=== PATIENT | female | born 1995 | race Caucasian/White ===

== ENCOUNTER 2016-09-26 13:26 | Emergency (ER) | payer SELFPAY ==
--- NOTE | ~2016-09-26 | ER ---
PATIENT'S NAME: ZAHEER MIX [facility] AGE: 20 Y [address] ROOM: [place] [id number] LOCATION: [facility] ADMIT DATE: 09/26/2016 ER/Outpatient Report DISCHARGE DATE: 09/26/2016 FAMILY PHYSICIAN: PHYSICIAN, NO ATTENDING PHYSICIAN: Vera Pierce Time of Arrival: 1526 hours. Time of Evaluation: 1545 hours. CHIEF COMPLAINT: Pain with urination, midepigastric abdominal pain, and low back pain. HISTORY OF PRESENT ILLNESS: This is a 20-year-old female, who presents to the ER, who states that she has had a 3-day history of burning with urination and urinary frequency. She states today both sides of her lower back started hurting her, so she was wondering if she had a UTI. She also states that while she is here, she would like to get her other abdominal complaint addressed as well. She states she has been having some midepigastric to right upper quadrant abdominal pain for the past 2 months. She states it worsens after drinking plain water or with fatty foods. She states usually her pain lasts a day or a day and a half and then it will go away on its own and nothing really helps her pain. She states she has not followed up with her primary care physician in regard of this abdominal pain. She states her midepigastric pain does not radiate into her back. No fever or chills. Denies any other problems at this time. ALLERGIES: NO KNOWN ALLERGIES. MEDICATIONS: None. PAST MEDICAL HISTORY: Negative. PAST SURGERIES: None. SOCIAL HISTORY: She does work. She does smoke cigarettes. Denies any drug or alcohol use. REVIEW OF SYSTEMS: A 10-point review of systems was completed and was negative with the exception of those discussed in the HPI. PATIENT'S NAME: ZAHEER MIX [facility] AGE: 20 Y [address] ROOM: [place] [id number] LOCATION: [facility] ADMIT DATE: 09/26/2016 ER/Outpatient Report DISCHARGE DATE: 09/26/2016 FAMILY PHYSICIAN: PHYSICIAN, SANDOVAL ATTENDING PHYSICIAN: Vera Pierce PHYSICAL EXAMINATION: VITAL SIGNS: Weight 82 kg taken, pulse 126/69, pulse 85, respirations 16, temperature 98.4 degrees tympanically, and saturations 96% on room air. Genevieve Coma Score is 15. GENERAL: Alert, calm, well-developed female, and in no acute distress. HEENT: Head: Normocephalic. Eyes: Pupils are equal and reactive to light. Does display moist mucous membranes. LUNGS: Clear to auscultation bilaterally. No wheezes or crackles. Normal respiratory effort. HEART: Regular rate and rhythm. No lifts, thrills, or murmurs. ABDOMEN: Soft. She has mild tenderness in her right upper quadrant with palpation as well as her suprapubic area with palpation. No guarding. No rebound tenderness. She has good bowel sounds throughout. No masses were palpated. EXTREMITIES: No clubbing, cyanosis, or edema. Full range of motion of all limbs. LABORATORY DATA AND X-RAYS: CBC: White count is 13.8, hemoglobin is 13.3, platelets 273, and ANC is 8.1. CMS was unremarkable. Amylase is 36. Lipase is 67. Urinalysis; leukocytes 500, nitrites negative. UA micro; white blood cells 20 to 50, red blood cells 5 to 10, epithelial 5 to 10, bacteria many. Urine HCG was negative. Ultrasound of the right upper quadrant was unremarkable and reported by the photographic reproduction technician. IMPRESSION: 1. Urinary tract infection. 2. Right upper quadrant abdominal pain. ASSESSMENT AND PLAN: The patient did rest comfortably here the entire stay. We will culture her urine. We will send her home with Bactrim to use as directed. She needs to continue to push fluids and monitor her symptoms. Follow up with her primary care physician for followup care in a week. The patient understands and agrees with care. CORA GILLIS PA-C FOR [facility]/antonio /[id number] d: t: 09/29/16 1312, OUTPATIENT REPORT
[~2016-09-26 13:26] MED LIST: PRENATAL 1+1)(P1 TAB PO
[2016-09-26 14:07] LABS: BASOPHIL # 0.1 K/uL (0.0-0.2); BASOPHIL % 0.6 %; EOSINOPHIL # 0.8 K/uL (0.0-0.5); EOSINOPHIL % 6.1 %; HEMATOCRIT 40.1 % (33.0-46.0); HEMOGLOBIN 13.3 g/dL (11.0-15.0); IMMATURE GRANULOCYTE % 0.3 %; LYMPHOCYTE # 3.9 K/uL (0.8-4.0); LYMPHOCYTE % 28.1 %; MCH 29.7 pg (27.0-34.0); MCHC 33.2 gm/dL (32.0-36.5); MCV 89.5 fl (83.0-98.0); MONOCYTE # 0.9 K/uL (0.0-1.0); MONOCYTE % 6.4 %; MPV 10.5 fl (9.4-12.4); NEUTROPHIL # (ANC) 8.1 K/uL (1.8-7.8); NEUTROPHIL % 58.5 %; NRBC % 0 /100WBC (0-0.00); PLATELET COUNT 273 K/uL (150-450); RBC 4.48 M/uL (3.50-5.00); RDW-CV 12.2 % (11.9-14.6); WBC 13.8 K/uL (4.0-11.0)
[2016-09-26 14:08] LABS: BILIRUBIN URINE NEGATIVE (NEGATIVE); BLOOD URINE 25 /UL (NEGATIVE); COLOR URINE YELLOW (YELLOW); GLUCOSE URINE NEGATIVE (NEGATIVE); KETONE URINE NEGATIVE (NEGATIVE); LEUKOCYTES URINE 500 /UL (NEGATIVE); NITRITE URINE NEGATIVE (NEGATIVE); PROTEIN URINE NEGATIVE (NEGATIVE); TURBIDITY URINE 2+ (CLEAR); UROBILINOGEN URINE NORMAL (NORMAL)
[2016-09-26 14:22] LABS: WBC URINE 20-50 #/HPF (NEGATIVE)
[2016-09-26 14:23] LABS: ALBUMIN 4.1 gm/dL (3.5-5.0); ALK PHOS 67 IU/L (33-138); ALT 18 IU/L (12-78); AST 12 IU/L (10-40); BLOOD UREA NITROGEN 12 mg/dL (6-24); CALCIUM 9.2 mg/dL (8.5-10.5); CHLORIDE 105 mMol/L (96-110); CO2 26 mMol/L (22-32); CREATININE 0.8 mg/dL (0.5-1.1); ESTIMATED GFR (MDRD EQUATION) > 60; SODIUM 141 mMol/L (135-145); TOTAL BILIRUBIN 0.5 mg/dL (0.0-1.5); TOTAL PROTEIN 7.8 g/dL (6.0-8.4)
[2016-09-26 14:23] LABS: BACTERIA URINE MANY (NEGATIVE); MUCUS URINE 2+ (NEGATIVE)
== END 2016-09-26 15:11 | disposition disaster alternative care site (69) ==
LOC: GMED 13:26
PROVIDERS: Family Medicine
DX: N39.0 Urinary tract infection, site not specified (principal); R10.11 Right upper quadrant pain; F17.210 Nicotine dependence, cigarettes, uncomplicated